=== PATIENT | female | born 1985 | race Caucasian/White ===

== ENCOUNTER 2019-11-16 13:47 | Emergency (ER) | payer OTHER ==
[2019-11-16 13:52] VITALS: BP 115/72; PULSE 71; TEMP 98.6; BMI 26.6
--- NOTE | 2019-11-16 15:10 | PDOC ---
History of Present Illness - General Chief Complaint: Pain Stated Complaint: SENT BY PCP/[facility] ABD PAIN - History of Present Illness Initial Comments: 11/16/19 15:08 33 y/o female with acute onset of abdominal pain since evening. Pain woke patient up from sleep and was diffuse and non-qualifiable. Patient evaluated at urgent care on Sunday and given an unknown medication that relieved the pain. Also reports 1 week h/o dysuria and one day of vaginal bleeding which is consistent with the timing of her menstrual cycle. Tolerating PO intake, however notes decreased appetite 2/2 to her symptoms. No fevers/chills, N/V/D. Last bowel movement was earlier today and was normal. Past History - Past Medical History Allergies/Adverse Reactions: Allergies Allergy/AdvReac Type Severity Reaction Status Date / Time No Known Allergies Allergy Verified 11/16/19 13:52 Home Medications: Ambulatory Orders Nitrofurantoin Monohyd/M-Cryst [Macrobid -] 100 mg PO BID #14 capsule 09/06/16 COPD: No - Reproductive History (#): 3 Para: 0 Cervical CA: No Dysfunctional Uterine Bleeding: No Ectopic : No Endometrial CA: No Polycystic Ovaries: No Therapeutic (s) & number: Yes (2) Tubal Ligation: No - Psycho Social/Smoking Cessation Hx Smoking History: Never smoked Hx Alcohol Use: No Drug/Substance Use Hx: No Substance Use Type: None Review of Systems - Review of Systems Constitutional: No: Chills, Fever HEENTM: No: Blurred Vision Respiratory: No: Cough, Shortness of Breath Cardiac (ROS): No: Chest Pain, Lightheadedness, Palpitations, Syncope ABD/GI: Yes: Abdominal cramping. No: Constipated, Diarrhea, Nausea, Vomiting : Yes: Dysuria *Physical Exam - Vital Signs Last Vital Signs Temp Pulse Resp BP Pulse Ox 98.6 F 71 17 115/72 99 11/16/19 13:49 11/16/19 13:52 11/16/19 13:52 11/16/19 13:52 11/16/19 13:49 - Physical Exam General Appearance: Yes: Nourished, Appropriately Dressed HEENT: positive: Normal Voice, Hearing Grossly Normal Neck: positive: Trachea midline, Supple Respiratory/Chest: positive: Lungs Clear, Normal Breath Sounds Cardiovascular: positive: S1, S2. 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 H/o one day of vaginal bleed, c/w timing of menstrual cycle however truncated, normal menses 4-5 days. Frontal diagnosis: Acute appendicitis, cystitis, pyelonephritis, ovarian torsion, hemorrhagic cyst. Also consider ectopic , threatened AB. PLAN: - TVUS - CTAP - CBC, CMP, B-HCG, T&S ED Course: UA clean, B-HCG negative CTAP negative for appendicitis or other acute pathology TVUS negative for torsion - shows multiple ovarian cysts B/L - non hemmorhagic Patient improved s/p GI cocktail. Discharged home with copy of TVUS and OB-[facility] follow-up. I discussed the physical exam findings, ancillary test results and final diagnoses with the patient. I answered all of the patient's questions. The patient was satisfied with the care received and felt comfortable with the discharge plan and treatment plan. The patient will return to the Emergency Department with any new, persistent or worsening symptoms. Discharge - Discharge Information Problems reviewed: Yes Clinical Impression/Diagnosis: Abdominal pain Condition: Fair Disposition: HOME - Admission No - Follow up/Referral Referrals: Deirdre Sosa MD [Primary Care Provider] - - Patient Discharge Instructions Additional Instructions: We have provided a copy of your CT scan and ultrasound - please follow-up in the next one week, you may require further ultrasounds. You can take Tylenol alternating with Motrin for your pain. Return to the Emergency Department for any new/worsening/concerning symptoms. - Post Discharge Activity
--- NOTE | 2019-11-16 16:01 | PDOC ---
Documentation entered by Bouchra Arce SCRIBE, acting as scribe for Jada Cabezas MD. Jada Cabezas MD: This documentation has been prepared by the yeison, Bouchra Arce SCRIBE, under my direction and personally reviewed by me in its entirety. I confirm that the documentation accurately reflects all work, treatment, procedures, and medical decision making performed by me. Attending Attestation - Resident Resident Name: Anny Birmingham - ED Attending Attestation I have performed the following: I have examined & evaluated the patient, The case was reviewed & discussed with the resident, I agree w/resident's findings & plan, Exceptions are as noted - HPI HPI: 11/16/19 15:26 Patient is a 33 year old female with acute onset abdominal pain that began 3 days ago in the evening. Patient reports that the pain woke her up from her sleep and was diffuse and non-qualifiable. lower abd. Patient was evaluated at an urgent care on Sunday, where they gave her medication (unknown) that helped alleviate the pain. at that time was found to have rlq ttp, told to go to ed for r/o appendicitis but pt had small child at home so couldn't come until today. Patient also reports one week of dysuria and one day og vaginal bleeding which is consistent with the timing of her menstrual cycle. pain is worse with food, and walking. does have dysuria, urgency and frequency. has had several uti, similar to uti. no n/v no f/c no travel. no cp no sob. 11/16/19 15:57 - Physicial Exam PE: 11/16/19 15:59 awake alert lungs clear bilat heart rrr no mrg abd soft RLQ ttp. no rebound no guarding. ext wwp. no edema. no calf tenderness. alert oriented x 3. - Medical Decision Making 11/16/19 16:00 33 yo F with rlq pain x 3 days. dysuria, irreg period ( abnormally short) differential uti pyelo, ovarian cyst, torsion , appendicitis, plan ct ap on pelvic exam mild right adnexal tenderness plan tvus in addition to ct a/p
[2019-11-16 16:10] LABS: EPI CELLS 7.1 /HPF (0-5/HPF); HYALINE CASTS 13 /lpf (0-8); URINE APPEARANCE CLEAR; URINE BACTERIA 201.3 /hpf (NEGATIVE); URINE BILIRUBIN NEGATIVE (NEGATIVE); URINE COLOR YELLOW; URINE GLUCOSE (UA) NEGATIVE (NEGATIVE); URINE KETONE NEGATIVE (NEGATIVE); URINE LEUK ESTERASE 1+ (NEGATIVE); URINE NITRITE NEGATIVE (NEGATIVE); URINE PROTEIN NEGATIVE (NEGATIVE); URINE RBC 5 /hpf (0-4); URINE WBC 21 /hpf (0-5)
[2019-11-16 16:32] LABS: BASO % 1.2 % (0-2.0); EOS % 1.1 % (0-4.5); HEMATOCRIT 41.6 % (32.4-45.2); HEMOGLOBIN 13.9 GM/dL (10.7-15.3); MCH 30.6 pg (25.7-33.7); MCHC 33.5 g/dl (32.0-36.0); MEAN CELL VOLUME 91.3 fl (80-96); MEAN PLT VOLUME 9.4 fl (7.5-11.1); MONO % 5.2 % (3.8-10.2); NEUT % 62.5 % (42.8-82.8); PLATELET COUNT 217 K/MM3 (134-434); RBC 4.56 M/mm3 (3.60-5.2); RDW 12.2 % (11.6-15.6); WHITE BLOOD COUNT 8.1 K/mm3 (4.0-10.0)
[2019-11-16 17:02] LABS: ALBUMIN 3.9 g/dl (3.4-5.0); ALK PHOS 113 U/L (45-117); ANION GAP 5 MMOL/L (8-16); BILIRUBIN,TOTAL 0.2 mg/dL (0.2-1); CALCIUM 8.8 mg/dL (8.5-10.1); CHLORIDE 108 mmol/L (98-107); CO2 28 mmol/L (21-32); CREATININE 0.7 mg/dL (0.55-1.3); GLUCOSE,RANDOM 82 mg/dL (74-106); POTASSIUM 3.9 mmol/L (3.5-5.1); SGOT/AST 13 U/L (15-37); SGPT/ALT 19 U/L (13-61); SODIUM 140 mmol/L (136-145); TOT PROT 7.5 g/dl (6.4-8.2)
== END 2019-11-16 19:07 | disposition home or self-care (01) ==
LOC: JER 13:47
DX: R10.31 Right lower quadrant pain (principal)
CPT/HCPCS: 36415; 74177-TC; 76830-TC; 80053; 81003; 84702; 85025; 87086; 99285-25; Q9967